=== PATIENT | female | born 1995 | race African-American/Black ===

== ENCOUNTER 2017-07-05 07:29 | Emergency (ER) | payer MEDICAID ==
[~2017-07-05] VITALS: Ht 162.6 cm; Wt 75.0 kg
[2017-07-05 08:05] VITALS: BP 113/64
[2017-07-05] MEDS ORDERED: LEVETIRACETAM 500MG PREMIX 100 ML IV ONE (08:30)
== END 2017-07-05 09:00 | disposition home or self-care (01) ==
LOC: ER 07:34
DX: G40.909 Epilepsy, unspecified, not intractable, without status epilepticus (principal); Z91.14 Patient's other noncompliance with medication regimen
CPT/HCPCS: 81025; 99283; 99284